=== PATIENT | female | born 1970 | race American Indian/Alaskan Native ===

== ENCOUNTER 2017-12-25 08:53 | Day surgery (SDC) | payer BC ==
[2017-12-17 14:33] VITALS: BMI 35.6
[2017-12-25] MEDS ORDERED: Midazolam 2 MG/2 ML VIAL ONE (14:29)
[2017-12-25] MEDS ORDERED: Propofol 10 mg/ml Inj (20 ML) ONE (14:29)
[2017-12-25] MEDS ORDERED: ceFAZolin IV 2 gm in Dextrose 2 GM/50 ML BAG IVPB ONE (15:23)
[2017-12-25] MEDS ORDERED: HYDROmorphone 0.5 mg/0.5 ml ISec IVP PRN (15:44)
[2017-12-25 17:49] VITALS: BP 142/84; PULSE 77; RESP 16; TEMP 98.9; O2SAT 99
--- NOTE | 2017-12-25 19:09 | PCM.SURG1 ---
Surgeon's Initial Post Op Note - Surgeon's Notes Surgeon: Roz Kirk MD Hotel Night Auditor: none Type of Anesthesia: General LMA Pre-Operative Diagnosis: Abnormal uterine bleeding, sympoamtic fibroids uteurs Operative Findings: enlarged 15 week size uteurs, submcual mass >7 cm within cavity against fundus, bilateral ostia visluzed, submcuoal myoma only partially resected Post-Operative Diagnosis: same as above Operation Performed: Hysteroscopic myomectomy, dilation and currettage Specimen/Specimens Removed: submucosal myoma, endocervical currettings, endoemtrial currettings Estimated Blood Loss: EBL {In ML}: 20 Blood Products Given: N/A Drains Used: No Drains Post-Op Condition: Good Date of Surgery/Procedure: 12/25/17 Time of Surgery/Procedure: 14:00
--- NOTE | 2017-12-26 06:39 | OP ---
PROCEDURE DATE: 12/25/2017 PREOPERATIVE DIAGNOSES: Abnormal uterine bleeding, symptomatic fibroid uterus. POSTOPERATIVE DIAGNOSES: Abnormal uterine bleeding, symptomatic fibroid uterus. OPERATIVE FINDINGS: A large 15-week size uterus, submucosal mass more than 7 cm with a cavity against fundus. Bilateral ostia visualized. Submucosal myoma only partially resected. OPERATION PERFORMED: Hysteroscopic myomectomy and dilation and curettage. SPECIMENS REMOVED: Submucosal myoma, endocervical curettings, and endometrial curettings. SURGEON: Roz Kirk MD BOARD OF DIRECTORS: None. TYPE OF ANESTHESIA: General LMA. ESTIMATED BLOOD LOSS: 20 mL. BLOOD PRODUCTS: None. COMPLICATIONS: None. DESCRIPTION OF PROCEDURE: The patient was taken to the operating room where she was given general anesthesia. Once it was found to be adequate, she was positioned on the operating table in a dorsal supine position with legs supported using stirrups. The patient was then prepped and draped in the usual sterile fashion. A time-out confirmed correct patient and correct procedure. Bimanual exam was performed. A red-rubber catheter was then inserted into the urethra to drain the bladder. Following this, a Antonio retractor was placed in the anterior lip of the fornix. The cervix was visualized. A single-tooth tenaculum was placed in the anterior lip of the cervix. Endocervical curettings were obtained with a Ginoian curette and sent to Pathology on [facility]. The uterus was then sounded approximately to 7 cm and blocked by . The cervix was sequentially dilated to allow for introduction of a 5-mm hysteroscope under direct visualization using normal saline as the distention media. There was a large submucosal mass noted to be approximately 7 cm within the cavity. Bilateral ostia were visualized. The mass was attached to the fundus. A MyoSure device was then carefully inserted, and a portion of the mass was then resected using the MyoSure device with good hemostasis noted. Due to the enlarged size and also fluid deficit, enough sample had been obtained, and the MyoSure device was then removed. Gentle curettage was done. All instruments were removed. There was good hemostasis at the tenaculum puncture site. At the end of the procedure, all needle, sponge, and instrument counts were noted and correct x2. The patient tolerated the procedure well and was transferred to the recovery room in stable condition. Roz Kirk MD [facility] # [id number]
== END 2017-12-25 17:35 | disposition home or self-care (01) ==
LOC: C.SDS 08:53
PROVIDERS: ATTEND Obstetrics & Gynecology
DX: D25.0 Submucous leiomyoma of uterus (principal); N84.1 Polyp of cervix uteri
CPT/HCPCS: 36415; 58558; 82948; 86850; 86900; 88305; J0690; J2001; J2250; J2704; J2765; J3010

== ENCOUNTER 2018-07-02 09:00 | Inpatient (IN) | payer BC ==
[2018-06-23 10:27] VITALS: BMI 36.8
[~2018-07-02 09:00] MED LIST: Methylene Blue 10 mg/mL(10ml) IV ONE; Midazolam 2 MG/2 ML VIAL ONE; Propofol 10 mg/ml Inj (20 ML) ONE; ceFAZolin 1 gm FROZEN Premix 2 GM/100 ML ML IVPB ONE
[2018-07-02] MEDS ORDERED: Rocuronium 10 mg/ml (5 ml) ONE ×2 (10:15→12:59)
[2018-07-02] MEDS ORDERED: Phenylephrine 10 mg/ml Inj ONE (11:40)
[2018-07-02 13:31] LABS: MEAN CELL VOLUME 84.5 fL (81.0-99.0); MEAN CORPUSCULAR HEMOGLOBIN 27.4 pg (27.0-31.0); MEAN CORPUSCULAR HGB CONC 32.4 g/dL (33.0-37.0); MEAN PLATELET VOLUME 7.8 fL (7.2-11.7); RBC 3.27 Mil/uL (3.80-5.20); RED CELL DISTRIBUTION WIDTH 14.4 % (11.5-14.5); WHITE BLOOD COUNT 15.3 K/uL (4.8-10.8)
[2018-07-02] MEDS ORDERED: ceFAZolin 1 gm FROZEN Premix 2 GM/100 ML ML IVPB ONE (14:16)
[2018-07-02] MEDS ORDERED: Neostigmine Methylsulfate 3mg/3ml Syringe IV ONE (14:28)
[2018-07-02] MEDS ORDERED: HYDROmorphone 0.5 mg/0.5 ml ISec IVP PRN (15:23)
[2018-07-02] MEDS ORDERED: Oxycodone/Acetaminophen 5/325 mg Tab PO PRN (15:27)
[2018-07-02] MEDS ORDERED: Lactated Ringer's 1,000 ML IV SCH (16:30)
[2018-07-02 16:39] LABS: BASO # 0.1 K/uL (0.0-0.2); BASO % 0.6 % (0.0-2.0); HEMOGLOBIN 8.3 g/dL (11.0-16.0); LYMPH # 1.1 K/uL (1.0-4.3); LYMPH % 6.9 % (20.0-40.0); MEAN CELL VOLUME 84.1 fL (81.0-99.0); MEAN CORPUSCULAR HEMOGLOBIN 27.2 pg (27.0-31.0); MEAN CORPUSCULAR HGB CONC 32.4 g/dL (33.0-37.0); MEAN PLATELET VOLUME 7.6 fL (7.2-11.7); MONO # 0.7 K/uL (0.0-0.8); MONO % 4.3 % (0.0-10.0); NEUT # 14.3 K/uL (1.8-7.0); NEUT % 88.2 % (50.0-75.0); PLATELET COUNT 282 K/uL (130-400); RBC 3.04 Mil/uL (3.80-5.20); RED CELL DISTRIBUTION WIDTH 14.4 % (11.5-14.5); WHITE BLOOD COUNT 16.2 K/uL (4.8-10.8)
[2018-07-02 16:51] LABS: ALBUMIN 2.5 g/dL (3.5-5.0); ALT/SGPT 24 U/L (9-52); AST/SGOT 21 U/L (14-36); BLOOD UREA NITROGEN 9 mg/dL (7-17); CALCIUM 7.9 mg/dl (8.6-10.4); GFR NON-AFRICAN AMERICAN > 60
[2018-07-02] MEDS: Lactated Ringer's 1,000 ML IV SCH (17:30)
[2018-07-02 18:15] LABS: BANDS 9 % (0-2); LYMPHOCYTE 4 % (20-40); MONOCYTE 3 % (0-10); NEUTROPHIL 84 % (50-75); PLATELET ESTIMATE NORMAL (NORMAL); TOTAL CELLS COUNTED 100
[2018-07-02 18:42] LABS: HEMOGLOBIN 8.6 g/dL (11.0-16.0); MEAN CELL VOLUME 83.6 fL (81.0-99.0); MEAN CORPUSCULAR HEMOGLOBIN 27.2 pg (27.0-31.0); MEAN CORPUSCULAR HGB CONC 32.5 g/dL (33.0-37.0); MEAN PLATELET VOLUME 7.9 fL (7.2-11.7); RBC 3.17 Mil/uL (3.80-5.20); RED CELL DISTRIBUTION WIDTH 14.3 % (11.5-14.5); WHITE BLOOD COUNT 19.3 K/uL (4.8-10.8)
[2018-07-02] MEDS ORDERED: Dextrose 50% SYRINGE Inj (50 ml) IV PRN (22:36)
[2018-07-02] MEDS ORDERED: Glucagon Recombinant 1 mg Inj IM PRN (22:36)
[2018-07-02] MEDS: Oxycodone/Acetaminophen 5/325 mg Tab PO PRN (22:47)
[2018-07-03 04:16] LABS: BASO # 0.1 K/uL (0.0-0.2); LYMPH % 8.8 % (20.0-40.0); MONO # 1.4 K/uL (0.0-0.8)
[2018-07-03 04:28] LABS: BASO % 0.5 % (0.0-2.0); LYMPH # 1.5 K/uL (1.0-4.3); MEAN CELL VOLUME 83.9 fL (81.0-99.0); MEAN CORPUSCULAR HEMOGLOBIN 27.8 pg (27.0-31.0); MEAN CORPUSCULAR HGB CONC 33.1 g/dL (33.0-37.0); MEAN PLATELET VOLUME 8.8 fL (7.2-11.7); NEUT # 14.3 K/uL (1.8-7.0); NEUT % 82.7 % (50.0-75.0); NRBC % 0.2 % (0.0-2.0); PLATELET COUNT 264 K/uL (130-400); RBC 3.62 Mil/uL (3.80-5.20); RED CELL DISTRIBUTION WIDTH 14.3 % (11.5-14.5); WHITE BLOOD COUNT 17.3 K/uL (4.8-10.8)
[2018-07-03 05:07] LABS: BANDS 4 % (0-2); LYMPHOCYTE 10 % (20-40); MONOCYTE 4 % (0-10); NEUTROPHIL 82 % (50-75); PLATELET ESTIMATE NORMAL (NORMAL); TOTAL CELLS COUNTED 100
[2018-07-03 08:49] LABS: BASO % 0.2 % (0.0-2.0); EOS % 0.1 % (0.0-4.0); HEMOGLOBIN 9.5 g/dL (11.0-16.0); LYMPH # 1.9 K/uL (1.0-4.3); MEAN CELL VOLUME 83.3 fL (81.0-99.0); MEAN CORPUSCULAR HEMOGLOBIN 28.3 pg (27.0-31.0); MEAN CORPUSCULAR HGB CONC 33.9 g/dL (33.0-37.0); MEAN PLATELET VOLUME 7.8 fL (7.2-11.7); MONO # 1.4 K/uL (0.0-0.8); MONO % 9.9 % (0.0-10.0); NEUT % 76.8 % (50.0-75.0); RBC 3.36 Mil/uL (3.80-5.20); RED CELL DISTRIBUTION WIDTH 14.4 % (11.5-14.5); WHITE BLOOD COUNT 14.3 K/uL (4.8-10.8)
[2018-07-03] MEDS: Lactated Ringer's 1,000 ML IV SCH (08:55)
[2018-07-03 09:01] LABS: ALB/GLOB RATIO 1.1 (1.0-2.1); ALBUMIN 2.9 g/dL (3.5-5.0); ALT/SGPT 24 U/L (9-52); AST/SGOT 47 U/L (14-36); BLOOD UREA NITROGEN 9 mg/dL (7-17); CALCIUM 8.3 mg/dl (8.6-10.4); GFR NON-AFRICAN AMERICAN 59
[2018-07-03] MEDS: (Novolin R) Insulin Human Regular 100 units/ml vial SC SCH ×4 (12:42→23:36)
[2018-07-03] MEDS: Oxycodone/Acetaminophen 5/325 mg Tab PO PRN ×2 (13:12→20:07)
[2018-07-04] MEDS: Oxycodone/Acetaminophen 5/325 mg Tab PO PRN ×2 (03:17→09:46)
[2018-07-04 06:42] LABS: BASO # 0.1 K/uL (0.0-0.2); BASO % 0.6 % (0.0-2.0); EOS # 0.1 K/uL (0.0-0.7); EOS % 0.6 % (0.0-4.0); HEMOGLOBIN 8.6 g/dL (11.0-16.0); LYMPH # 2.3 K/uL (1.0-4.3); MEAN CELL VOLUME 84.5 fL (81.0-99.0); MEAN CORPUSCULAR HEMOGLOBIN 27.3 pg (27.0-31.0); MEAN CORPUSCULAR HGB CONC 32.3 g/dL (33.0-37.0); MEAN PLATELET VOLUME 7.8 fL (7.2-11.7); MONO # 1.2 K/uL (0.0-0.8); NEUT # 9.4 K/uL (1.8-7.0); NEUT % 71.8 % (50.0-75.0); RBC 3.13 Mil/uL (3.80-5.20); RED CELL DISTRIBUTION WIDTH 14.7 % (11.5-14.5); WHITE BLOOD COUNT 13.1 K/uL (4.8-10.8)
[2018-07-04 06:49] LABS: ALB/GLOB RATIO 1.1 (1.0-2.1); ALBUMIN 3.2 g/dL (3.5-5.0); ALT/SGPT 26 U/L (9-52); AST/SGOT 49 U/L (14-36); BLOOD UREA NITROGEN 6 mg/dL (7-17); CALCIUM 8.8 mg/dl (8.6-10.4); GFR NON-AFRICAN AMERICAN > 60
[2018-07-04] MEDS: (Novolin R) Insulin Human Regular 100 units/ml vial SC SCH ×2 (08:59→15:35)
[2018-07-04] MEDS ORDERED: Magnesium Hydroxide Susp 30 ml UD PO ONE (09:11)
[2018-07-04] MEDS: Simethicone 80 mg Chewtab PO SCH ×3 (09:46→17:47)
--- NOTE | 2018-07-04 10:18 | CP.PCM.PN ---
Subjective - Date & Time of Evaluation Date of Evaluation: 07/04/18 Time of Evaluation: 10:15 - Subjective Subjective: no complaints, tolerated clears, pain well controlled, voiding spontaneously, no flatus yet Objective - Vital Signs/Intake and Output Vital Signs (last 24 hours): Temp Pulse Resp BP Pulse Ox 98.9 F 113 H 20 115/72 100 07/04/18 08:00 07/04/18 08:00 07/04/18 08:00 07/04/18 08:00 07/04/18 08:00 - Medications Medications: Current Medications Dextrose (Dextrose 50% Inj) 0 ml IV STAT PRN; Protocol PRN Reason: Hypoglycemia Protocol Dextrose (Glutose 15) 0 gm PO ONCE PRN; Protocol PRN Reason: Hypoglycemia Protocol Glucagon (Glucagen Diagnostic Kit) 0 mg IM STAT PRN; Protocol PRN Reason: Hypoglycemia Protocol Cefazolin Sodium 2,000 mg/ (Sodium Chloride) 100 mls @ 100 mls/hr IVPB Q8H KAEL; Protocol Last Admin: 07/04/18 09:45 Dose: 100 mls/hr Lactated Ringer's (Lactated Ringer's) 1,000 mls @ 125 mls/hr IV .Q8H KAEL Last Admin: 07/03/18 08:55 Dose: 125 mls/hr Lactated Ringer's (Lactated Ringer's) 1,000 mls @ 999 mls/hr IV .Q1H1M KAEL Last Admin: 07/02/18 16:30 Dose: 1,000 mls Dextrose (Dextrose 5% In Water 1000 Ml) 1,000 mls @ 0 mls/hr IV .Q0M PRN; Protocol PRN Reason: Hypoglycemia Protocol Ibuprofen (Motrin Tab) 600 mg PO Q6 PRN PRN Reason: Pain, Mild (1-3) Insulin Human Regular (Novolin R) 0 unit SC ACHS KAEL; Protocol Last Admin: 07/04/18 08:59 Dose: Not Given Oxycodone/Acetaminophen (Percocet 5/325 Mg Tab) 1 tab PO Q6H PRN PRN Reason: Pain, moderate (4-7) Stop: 07/05/18 15:26 Last Admin: 07/04/18 09:46 Dose: 1 tab Oxycodone/Acetaminophen (Percocet 5/325 Mg Tab) 2 tab PO Q6H PRN PRN Reason: Pain, severe (8-10) Stop: 07/05/18 15:28 Simethicone (Mylicon Chew Tab) 80 mg PO QID KAEL Last Admin: 07/04/18 09:46 Dose: 80 mg - Labs Labs: 07/04/18 06:28 07/04/18 06:28 - GI/Abdominal Exam Additional comments: soft NTND, obese, pfannensteil incision with steri strips in place, in tract, no erythema or tenderness, +BS Assessment and Plan - Assessment and Plan (Free Text) Assessment: s/p abdominal hysterectomy, POD #2 vitals stable, afebrile intraop blood loss 1500cc s/p 1 unit pRBC repeat CBC pending to asses if Hb is stable advance to diabetic diet restart home meds encourage OOB and ambulation routine post op care Dr. Jennifer Kirk, laborist director investor relations, seen patient on bahalf of Dr. Roz Kirk
[2018-07-04 13:05] LABS: BASO # 0.1 K/uL (0.0-0.2); BASO % 0.9 % (0.0-2.0); EOS # 0.1 K/uL (0.0-0.7); EOS % 0.9 % (0.0-4.0); HEMOGLOBIN 8.4 g/dL (11.0-16.0); LYMPH # 2.2 K/uL (1.0-4.3); LYMPH % 16.8 % (20.0-40.0); MEAN CELL VOLUME 84.7 fL (81.0-99.0); MEAN CORPUSCULAR HEMOGLOBIN 28.1 pg (27.0-31.0); MEAN CORPUSCULAR HGB CONC 33.2 g/dL (33.0-37.0); MEAN PLATELET VOLUME 7.8 fL (7.2-11.7); MONO # 0.9 K/uL (0.0-0.8); MONO % 7.2 % (0.0-10.0); NEUT # 9.6 K/uL (1.8-7.0); NEUT % 74.2 % (50.0-75.0); NRBC % 0.1 % (0.0-2.0); RBC 2.99 Mil/uL (3.80-5.20); RED CELL DISTRIBUTION WIDTH 14.7 % (11.5-14.5); WHITE BLOOD COUNT 12.9 K/uL (4.8-10.8)
[2018-07-05] MEDS: Oxycodone/Acetaminophen 5/325 mg Tab PO PRN (07:52)
[2018-07-05 08:03] VITALS: BP 115/74; PULSE 92; RESP 18; TEMP 98.3; O2SAT 99
[2018-07-05] MEDS: Simethicone 80 mg Chewtab PO SCH ×2 (09:20)
[2018-07-05] MEDS ORDERED: Influenza Vaccine 60 MCG/0.5 ML SYR (3 yr & up) IM ONE (09:26)
--- NOTE | 2018-07-06 20:30 | CP.PCM.DIS ---
Provider - Provider Date of Admission: 07/02/18 09:31 Attending physician: Roz Kirk MD Time Spent in preparation of Discharge (in minutes): 30 Diagnosis - Discharge Diagnosis (1) S/P hysterectomy with oophorectomy Status: Acute Priority: Medium (2) Postoperative anemia due to acute blood loss Status: Acute Priority: Medium (3) Fibroids Status: Acute Hospital Course - Lab Results Lab Results: Most Recent Lab Values WBC 12.9 K/uL (4.8-10.8) H 07/04/18 12:59 RBC 2.99 Mil/uL (3.80-5.20) L 07/04/18 12:59 Hgb 8.4 g/dL (11.0-16.0) L 07/04/18 12:59 Hct 25.3 % (34.0-47.0) L 07/04/18 12:59 MCV 84.7 fL (81.0-99.0) 07/04/18 12:59 MCH 28.1 pg (27.0-31.0) 07/04/18 12:59 MCHC 33.2 g/dL (33.0-37.0) 07/04/18 12:59 RDW 14.7 % (11.5-14.5) H 07/04/18 12:59 Plt Count 237 K/uL (130-400) 07/04/18 12:59 MPV 7.8 fL (7.2-11.7) 07/04/18 12:59 Neut % (Auto) 74.2 % (50.0-75.0) 07/04/18 12:59 Lymph % (Auto) 16.8 % (20.0-40.0) L 07/04/18 12:59 Hubbard % (Auto) 7.2 % (0.0-10.0) 07/04/18 12:59 Eos % (Auto) 0.9 % (0.0-4.0) 07/04/18 12:59 Baso % (Auto) 0.9 % (0.0-2.0) 07/04/18 12:59 Neut # (Auto) 9.6 K/uL (1.8-7.0) H 07/04/18 12:59 Lymph # (Auto) 2.2 K/uL (1.0-4.3) 07/04/18 12:59 Hubbard # (Auto) 0.9 K/uL (0.0-0.8) H 07/04/18 12:59 Eos # (Auto) 0.1 K/uL (0.0-0.7) 07/04/18 12:59 Baso # (Auto) 0.1 K/uL (0.0-0.2) 12 12:59 Neutrophils % (Manual) 82 % (50-75) H 07/03/18 04:07 Band Neutrophils % 4 % (0-2) H 07/03/18 04:07 Lymphocytes % (Manual) 10 % (20-40) L 07/03/18 04:07 Monocytes % (Manual) 4 % (0-10) 07/03/18 04:07 Platelet Estimate Normal (NORMAL) 07/03/18 04:07 Sodium 138 mmol/L (132-148) 07/04/18 06:28 Potassium 3.9 mmol/L (3.6-5.2) 07/04/18 06:28 Chloride 103 mmol/L (98-107) 07/04/18 06:28 Carbon Dioxide 29 mmol/L (22-30) 07/04/18 06:28 Anion Gap 10 (10-20) 07/04/18 06:28 BUN 6 mg/dL (7-17) L 07/04/18 06:28 Creatinine 0.9 mg/dL (0.7-1.2) 07/04/18 06:28 Est GFR ( Amer) > 60 07/04/18 06:28 Est GFR (Non-Af Amer) > 60 07/04/18 06:28 POC Glucose (mg/dL) 132 mg/dL (65-110) H 07/05/18 07:38 Random Glucose 138 mg/dL (65-105) H 07/04/18 06:28 Calcium 8.8 mg/dl (8.6-10.4) 07/04/18 06:28 Total Bilirubin 0.8 mg/dL (0.2-1.3) 07/04/18 06:28 AST 49 U/L (14-36) H 07/04/18 06:28 ALT 26 U/L (9-52) 07/04/18 06:28 Alkaline Phosphatase 52 U/L (38-126) 07/04/18 06:28 Total Protein 5.9 g/dL (6.3-8.3) L 07/04/18 06:28 Albumin 3.2 g/dL (3.5-5.0) L 07/04/18 06:28 Globulin 2.8 gm/dL (2.2-3.9) 07/04/18 06:28 Albumin/Globulin Ratio 1.1 (1.0-2.1) 07/04/18 06:28 Blood Type O POSITIVE 07/02/18 10:14 Antibody Screen Negative 07/02/18 10:14 - Hospital Course Hospital Course: s/p WILLA 07/02/18 ebl 1200 cc s/p cystospcy lso, rt slapnecotmy noram post op course s/p 1 unit postoperative dc po #3 doignw ell Discharge Exam - Head Exam Head Exam: ATRAUMATIC, NORMAL INSPECTION - Eye Exam Eye Exam: EOMI - ENT Exam ENT Exam: Normal Exam - Respiratory Exam Respiratory Exam: Clear to PA & Lateral, NORMAL BREATHING PATTERN - GI/Abdominal Exam GI & Abdominal Exam: Normal Bowel Sounds, Soft, Unremarkable Additional comments: incciosn c/d/i healing well no vaigna bleeding no guairndk no reboudn tendneres no righdts - Exam Exam: NORMAL INSPECTION - Neurological Exam Neurological exam: Alert, CN II-XII Intact, Oriented x3, Reflexes Normal - Psychiatric Exam Psychiatric exam: Normal Affect, Normal Mood - Skin Skin Exam: Dry, Intact, Normal Color, Warm Additional comments: negative noreen sign Discharge Plan - Discharge Medications Prescriptions: Ibuprofen [Motrin Tab] 600 mg PO Q6 PRN #15 tab PRN Reason: Pain, Mild (1-3) oxyCODONE/Acetaminophen [Percocet 5/325 mg Tab] 1 tab PO Q6H PRN #15 tab PRN Reason: Pain, Moderate (4-7) - Follow Up Plan Condition: GOOD Disposition: HOME/ ROUTINE Instructions: Hysterectomy, Abdominal or Laparoscopic Surgery, Cystoscopy (DC), General Anesthesia (DC) Additional Instructions: Light activity, no heavy lifting, drink plenty of fluids, take pain medication as prescribed, follow up with Reagan Leslie on 07/08/18.
--- NOTE | 2018-07-07 09:45 | OP ---
PROCEDURE DATE: 07/02/2018 PREOPERATIVE DIAGNOSES: Symptomatic fibroid uterus, abnormal uterine bleeding, pelvic pain, pelvic pressure, fibroids as mentioned above. POSTOPERATIVE DIAGNOSES: Symptomatic fibroid uterus, abnormal uterine bleeding, pelvic pain, pelvic pressure, fibroids as mentioned above. PROCEDURE PERFORMED: Exploratory laparotomy, bilateral salpingectomy, left salpingo-oophorectomy, cystoscopy. OPERATIVE FINDINGS: Enlarged 22 plus week multifibroid uterus; multiple fibroids at least 5 cm, 7 cm, etc. Abnormal left ovary adherent to the uterus, normal appearing tubes, normal appearing right ovary. Dr. Manuelito Richard, certified surgical technician was present for the entire case; essential in gaining entry, retraction, exposure, completing the procedure, obtaining hemostasis and closing all layers and was present for the entire case. ANESTHESIA: General. ESTIMATED BLOOD LOSS: 1200 mL. COMPLICATIONS: None. INDICATIONS FOR THE PROCEDURE: The patient is a 47-year-old with symptomatic fibroid uterus, pelvic pain, pelvic pressure, that had failed multiple medical management, was counseled on definitive surgical management. Risks, benefits, alternatives, and indications were discussed of the procedure. Consents were obtained prior to the procedure. DESCRIPTION OF PROCEDURE: The patient was taken to the operating room where she was given general anesthesia. Once it was found to be adequate, the patient was placed on the operating table in dorsal supine position. The patient was prepped and draped in usual sterile fashion. A Aguilar catheter was then inserted into the urethra. Abdominal and vaginal prep was done prior to placement of a sterile drape. The patient was given preoperative prophylactic antibiotics. A Pfannenstiel skin incision was made with a scalpel and carried down to the underlying fascia with the Bovie. The fascia was incised in the midline and the incision was extended laterally with the Bovie. The inferior aspect of the fascial incision was grasped with Allis and Zoraida clamps, and the underlying rectus muscles were dissected off bluntly. Attention was then turned to the superior aspect of the fascial incision, which in a similar fashion was grasped with Allis and Zoraida clamps, and the underlying rectus muscles were dissected off bluntly. The rectus muscles were then bluntly in the midline. The peritoneum was identified and entered in clear space. The incision was extended laterally and superiorly until there was good visualization. An enlarged multifibroid uterus was delivered through the abdomen and retracted through. All structures were identified including the round ligaments, the IP ligament. The patient was then placed in Trendelenburg position. The bowel was then packed away using moist laparotomy pads. O'Yung-O'Kirkland retractor was then placed into the abdomen to facilitate exposure and visualization. Following this, the specimen was then tented up using tenaculum. The round ligament on either side was identified, cut, clamped, ligated using a Jhon suture x2. Following this, the right fallopian tube was removed from the distal fimbriated end up to the level of the cornua using the Jhon clamp, suture ligating, cutting. The right utero-ovarian ligament was then identified, cut, clamped, and suture ligated using a Jhon clamp. Following this, the left round ligament was identified, clamped, ligated, sutured. The left IP ligament was identified, after identifying the ureter, doubly clamped with Jhon clamp, suture ligated. There was good hemostasis noted. The uterine artery was then carefully skeletonized, identified the uterine artery which was doubly clamped, ligated. . Following this, the cardinal ligament was identified, clamped, suture ligated followed by the uterosacral ligament. This was now to the level of the vagina. The specimen was then amputated using Alejandra. The was then clamped up using Allis clamps. The uterosacral was inserted into the apex of the vaginal cuff and the vaginal cuff was closed using interrupted [id number] sutures. There was good closure noted. Following this, the abdomen was then carefully irrigated with normal saline. There was good hemostasis noted. All pedicles were visualized and appeared to hemostatic. Following this, the laparotomy sponges were all removed. The peritoneum was reapproximated and closed using 2-0 chromic. The rectus was reapproximated and closed with 2-0 chromic in an interrupted manner. The fascia was reapproximated and closed with 0 Vicryl in a running continuous fashion. The subcutaneous space was closed with 2-0 plain in an interrupted manner, and the skin was reapproximated and closed with 4-0 Monocryl in a running subcuticular fashion. The abdomen was prepped and clean pressure dressing was then applied. Attention was then turned to the perineum and Aguilar catheter was then removed. was performed in which a 30-degree cystoscope was then inserted under direct visualization using normal saline as distention media. There were bilateral ureteral jets noted through each ureteral orifice. The cystoscope was then removed, and a new Aguilar catheter was then inserted. At the end of the procedure, all needle, sponge, and instrument counts were noted to be correct x2. The patient tolerated the procedure well and was transferred to the recovery room in stable condition. Roz Kirk MD
== END 2018-07-05 12:31 | disposition home or self-care (01) | DRG 742 ==
LOC: C.9S 09:31 → C.4M 17:53
PROVIDERS: ADMIT Obstetrics & Gynecology; ATTEND Obstetrics & Gynecology
PROC: 0UT70ZZ Resection of Bilateral Fallopian Tubes, Open Approach (ICD-10-PCS; 2018-07-02)
PROC: 30233N1 Transfusion of Nonautologous Red Blood Cells into Peripheral Vein, Percutaneous Approach (ICD-10-PCS; 2018-07-02)
PROC: 0UT90ZZ Resection of Uterus, Open Approach (ICD-10-PCS; principal; 2018-07-02 09:00)
PROC: 0UT10ZZ Resection of Left Ovary, Open Approach (ICD-10-PCS; 2018-07-02 09:00)
DX: D25.1 Intramural leiomyoma of uterus (principal); D62 Acute posthemorrhagic anemia; D25.0 Submucous leiomyoma of uterus; D25.2 Subserosal leiomyoma of uterus; N93.8 Other specified abnormal uterine and vaginal bleeding; N84.0 Polyp of corpus uteri; N88.8 Other specified noninflammatory disorders of cervix uteri; N83.02 Follicular cyst of left ovary; N83.12 Corpus luteum cyst of left ovary; N83.8 Other noninflammatory disorders of ovary, fallopian tube and broad ligament; E11.9 Type 2 diabetes mellitus without complications; Z79.4 Long term (current) use of insulin